=== PATIENT | female | born 1995 | race Caucasian/White ===

== ENCOUNTER 2018-07-03 07:48 | Emergency (ER) | payer SELFPAY ==
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
[2018-07-03] MEDS ORDERED: IBUPROFEN 400 MG TAB ONE (08:45)
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
== END 2018-07-03 08:58 | disposition home or self-care (01) ==
LOC: ER 07:48
DX: S50.11XA Contusion of right forearm, initial encounter (principal); V49.9XXA Car occupant (driver) (passenger) injured in unspecified traffic accident, initial encounter; Z88.2 Allergy status to sulfonamides; Z91.040 Latex allergy status; Z91.048 Other nonmedicinal substance allergy status
CPT/HCPCS: 99283